=== PATIENT | male | born 1980 | race Caucasian/White ===

== ENCOUNTER 2019-10-30 07:42 | Emergency (ER) | payer OTHER ==
[~2019-10-30] VITALS: Ht 165.1 cm; Wt 72.6 kg
[~2019-10-30 07:42] MED LIST: NORCO 5-325 TA1 EACH PO; PRILOSEC40 MG PO
[2019-10-30] MEDS ORDERED: MOBIC15 MG PO (08:32)
[2019-10-30 08:58] VITALS: BP 122/60
--- NOTE | 2019-10-30 14:07 | EKG ---
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 [employer]: ALEXANDREA : 1980 Requested By: Mer Garcia Order Number: [id number] MD: Tashi Daniels Measurements Intervals [place] Rate: 89 P: 44 MO: 141 QRS: -35 QRSD: 100 T: 36 QT: 369 QTc: 449 Interpretive Statements Sinus rhythm Left axis deviation ST elev, probable normal early repol pattern Compared to ECG 09/24/2013 03:48:23 Left-axis deviation now present ST (T wave) deviation now present Ventricular premature complex(es) no longer present Electronically Signed On 10-30-2019 14:06:56 CDT by Tashi Daniels [email or web address] <ELECTRONICALLY SIGNED> By: Tashi Daniels MD 10/30/19 1406 0743 Tashi Daniels MD /EPI
--- NOTE | 2019-10-30 14:07 | EKG ---
[facility] [place] [address] ELECTROCARDIOGRAM REPORT Name: MATT VANG Room #: DEP 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: ALEXANDREA : 1980 Requested By: Mer Garcia Order Number: [id number] MD: Tashi Daniels Measurements Intervals [place] Rate: 99 P: 46 IN: 144 QRS: -36 QRSD: 104 T: 10 QT: 386 QTc: 496 Interpretive Statements Sinus rhythm Ventricular bigeminy Left axis deviation ST elev, probable normal early repol pattern Compared to ECG 10/30/2019 07:43:52 Ventricular premature complex(es) now present ST (T wave) deviation still present Electronically Signed On 10-30-2019 14:07:08 CDT by Tashi Daniels [email or web address] <ELECTRONICALLY SIGNED> By: Tashi Daniels MD 10/30/19 1407 5 5 Tashi Daniels MD /EPI
== END 2019-10-30 08:58 | disposition home or self-care (01) ==
LOC: ER 07:42
DX: S20.211A Contusion of right front wall of thorax, initial encounter (principal); F17.210 Nicotine dependence, cigarettes, uncomplicated; Z79.899 Other long term (current) drug therapy; W01.0XXA Fall on same level from slipping, tripping and stumbling without subsequent striking against object, initial encounter; Y93.89 Activity, other specified; Y92.89 Other specified places as the place of occurrence of the external cause; Y99.9 Unspecified external cause status

== ENCOUNTER 2020-11-24 09:20 | Emergency (ER) | payer OTHER ==
[~2020-11-24] VITALS: Ht 167.6 cm; Wt 72.6 kg
[~2020-11-24 09:20] MED LIST changes: +MOBIC15 MG PO
[2020-11-24] MEDS ORDERED: TYLENOL325 MG PO (09:33)
[2020-11-24 09:44] LABS: ABSOLUTE NEUTROPHILS 4.1 thou/uL (1.4-8.2); BASOPHILS 0.8 % (0.0-2.0); EOSINOPHILS 0.8 % (0.0-3.0); HEMATOCRIT 46.3 % (42.0-52.0); HEMOGLOBIN 15.9 gm/dL (14.0-18.0); LYMPHOCYTES 23.8 % (24.0-44.0); MCH 30.4 pg (26.0-34.0); MCHC 34.4 g/dL (28.0-37.0); MCV 88.5 fL (80.0-100.0); MONOCYTES 8.1 % (1.0-8.0); PLATELET COUNT 337 thou/uL (150-400); POLYS 66.5 % (36.0-66.0); RBC 5.24 mil/uL (4.50-6.00); WBC 6.1 thou/uL (4.0-11.0)
[2020-11-24 09:46] LABS: CALCIUM 9.2 mg/dL (8.5-10.1); POTASSIUM 3.7 mmol/L (3.5-5.1)
[2020-11-24 09:52] LABS: ALBUMIN 4.6 g/dL (3.4-5.0); TOTAL BILIRUBIN 0.8 mg/dL (0.2-1.0); TOTAL PROTEIN 8.6 g/dL (6.4-8.2)
[2020-11-24 13:26] VITALS: BP 132/74
== END 2020-11-24 13:26 | disposition home or self-care (01) ==
LOC: ER 09:20
PROVIDERS: Emergency Medicine
DX: T67.5XXA Heat exhaustion, unspecified, initial encounter (principal); F17.210 Nicotine dependence, cigarettes, uncomplicated; X58.XXXA Exposure to other specified factors, initial encounter; Y93.89 Activity, other specified; Y92.89 Other specified places as the place of occurrence of the external cause; Y99.8 Other external cause status